=== PATIENT | male | born 1985 | race Caucasian/White ===

== ENCOUNTER 2018-08-28 11:12 | Emergency (ER) | payer BC ==
[~2018-08-28] VITALS: Ht 203.2 cm; Wt 111.1 kg
[2018-08-28 12:55] LABS: ABSOLUTE NEUTROPHILS 3.1 thou/uL (1.4-8.2); BASOPHILS 0.7 % (0.0-2.0); EOSINOPHILS 1.9 % (0.0-3.0); HEMATOCRIT 43.5 % (42.0-52.0); HEMOGLOBIN 14.5 gm/dL (14.0-18.0); LYMPHOCYTES 22.5 % (24.0-44.0); MCH 28.9 pg (26.0-34.0); MCHC 33.4 g/dL (28.0-37.0); MCV 86.5 fL (80.0-100.0); PLATELET COUNT 160 thou/uL (150-400); POLYS 66.9 % (36.0-66.0); RBC 5.03 mil/uL (4.50-6.00); RDW 12.9 % (10.5-14.5); WBC 4.7 thou/uL (4.0-11.0)
[2018-08-28 13:05] LABS: ANION GAP 5 mmol/L (7-16); BUN 21 mg/dL (7-18); CALCIUM 8.9 mg/dL (8.5-10.1); CHLORIDE 104 mmol/L (98-107); CO2 30 mmol/L (21-32); CREATININE 1.3 mg/dL (0.7-1.3); GLUCOSE 96 mg/dL (74-106); POTASSIUM 4.1 mmol/L (3.5-5.1); SODIUM 139 mmol/L (136-145)
[2018-08-28 13:15] LABS: SGOT 20 U/L (15-37); SGPT 33 U/L (30-65); TOTAL BILIRUBIN 1.3 mg/dL (<0.1-1.0); TOTAL PROTEIN 6.8 g/dL (6.4-8.2); TROPONIN-I <0.06 ng/mL (<0.06)
[2018-08-28 14:12] VITALS: BP 128/71
--- NOTE | 2018-08-28 17:07 | EKG ---
[address] [place] [address] ELECTROCARDIOGRAM REPORT Name: BHAVYA MC Room #: DEP SEBASTIAN Vieyra#: [id number] ������������������ Admission: 08/28/18 ������������������ Attend Phys: Discharge: 08/28/18 ������������������ Date of : 87 Report #: [id number] ����������������������������������������������������������������� [id number] THIS REPORT FOR: //name// [facility] ED Test Date: 2018-08-28 Test Time: 12:07:14 Pat Name: BHAVYA MC Department: Room: Gender: [employer]: [place] : 1985 Requested By: Scarlett Alvarado Order Number: [id number] MD: King Hdez Measurements Intervals [place] Rate: 45 P: 74 TN: 209 QRS: 109 QRSD: 127 T: 54 QT: 441 QTc: 382 Interpretive Statements Sinus bradycardia with sinus arrhythmia No previous ECG available for comparison Electronically Signed On 08-28-2018 17:07:19 CDT by King Hdez [email or web address] ��������������������������������������������� <ELECTRONICALLY SIGNED> ���������������������������������������� By: King Hdez MD ��������������������������������������������� 08/28/18 1707 1207 1207 King Hdez MD /CAROLINE
== END 2018-08-28 14:13 | disposition home or self-care (01) ==
LOC: ER 11:12
PROVIDERS: Physician Assistant
DX: R06.02 Shortness of breath (principal); R42 Dizziness and giddiness; Z88.1 Allergy status to other antibiotic agents; Z88.2 Allergy status to sulfonamides